=== PATIENT | female | born 1965 | race Asian ===

== ENCOUNTER 2018-01-10 03:50 | Inpatient (IN) | payer OTHER ==
[2018-01-10] MEDS: SOD CHLORIDE 0.9% 1,000 ML IV ×4 (04:23→16:13)
[2018-01-10] MEDS: ONDANSETRON 4 MG INJ IV (04:23)
[2018-01-10] MEDS: HYDROmorphONE 1 MG/ML SYG IV (04:24)
[2018-01-10 04:26] LABS: ADD MAN DIFF? NO
[2018-01-10 04:27] LABS: BASOPHILS % 0.2 % (0.0-2.0); EOSINOPHILS % 0.1 % (0.0-7.0); HEMATOCRIT 43.4 % (37.0-47.0); HEMOGLOBIN 14.5 g/dl (12.0-16.0); LYMPHOCYTES # 1.5 10^3/ul (0.8-2.9); LYMPHOCYTES % 8.2 % (15.0-51.0); MEAN CORPUSCULAR HEMOGLOBIN 31.4 pg (29.0-33.0); MEAN CORPUSCULAR HGB CONC 33.4 g/dl (32.0-37.0); MEAN CORPUSCULAR VOLUME 93.9 fl (82.0-101.0); MONOCYTES % 5.1 % (0.0-11.0); NEUTROPHILS % 85.9 % (39.0-77.0); PLATELET COUNT 268 10^3/UL (140-415); RED BLOOD COUNT 4.62 10^6/ul (4.20-5.40)
[2018-01-10 04:27] LABS: WHITE BLOOD COUNT 18.6 10^3/ul (4.8-10.8)
[2018-01-10 04:50] LABS: ALANINE AMINOTRANSFERASE 28 IU/L (13-69); ALBUMIN 4.7 g/dl (3.3-4.9); ALBUMIN/GLOBULIN RATIO 1.17; ALKALINE PHOSPHATASE 54 IU/L (42-121); ANION GAP 15 (8-16); ASPARTATE AMINO TRANSFERASE 33 IU/L (15-46); BILIRUBIN,INDIRECT 0.8 mg/dl (0-1.1); BILIRUBIN,TOTAL 0.8 mg/dl (0.2-1.3); BLOOD UREA NITROGEN 15 mg/dl (7-20); CALCIUM 9.7 mg/dl (8.4-10.2); CARBON DIOXIDE 29 mmol/L (21-31); CHLORIDE 102 mmol/L (97-110); CREATININE 0.71 mg/dl (0.44-1.00); GLUCOSE 147 mg/dl (70-220); LIPASE 87 U/L (23-300); POTASSIUM 4.5 mmol/L (3.5-5.1); SODIUM 141 mmol/L (135-144); TOTAL PROTEIN 8.7 g/dl (6.1-8.1)
[2018-01-10] MEDS: SOD CHLORIDE 0.9% 100 ML (05:16)
[2018-01-10] MEDS: IOHEXOL 300MG/ML 150 ML BTL (05:17)
[2018-01-10 05:58] LABS: URINE BLOOD (Dip) POC 1+ (NEGATIVE); URINE GLUCOSE (Dip) POC Negative (NEGATIVE); URINE KETONES (Dip) POC Negative (NEGATIVE); URINE LEUKOCYTE EST (Dip) POC Negative (NEGATIVE); URINE NITRITE (Dip) POC Negative (NEGATIVE); URINE TOTAL PROTEIN POC Negative (NEGATIVE)
[2018-01-10] MEDS: ACETAMINOPHEN 500 MG TAB PO (06:06)
[2018-01-10] MEDS: ERTAPENEM SODIUM 1 GM in SOD CHLORIDE 0.9% 100 ML IVPB (06:30)
[2018-01-10] MEDS ORDERED: ACETAMINOPHEN 325 MG TAB PO (09:00)
[2018-01-10] MEDS: morphine 2 MG INJ IV ×3 (12:25→21:19)
[2018-01-10] MEDS: LIDOCAINE 2% VISC 15 ML CUP PO (23:17)
[2018-01-10] MEDS: LORAZEPAM 2 MG INJ IV (23:20)
[2018-01-11] MEDS: morphine 2 MG INJ IV (01:16)
[2018-01-11] MEDS: SOD CHLORIDE 0.9% 1,000 ML IV ×3 (03:59→14:19)
[2018-01-12] MEDS: SOD CHLORIDE 0.9% 1,000 ML IV ×3 (00:52→23:10)
[2018-01-12 07:58] LABS: ADD MAN DIFF? NO
[2018-01-12 08:07] LABS: BASOPHIL # 0.1 10^3/ul (0.0-0.1); BASOPHILS % 0.5 % (0.0-2.0); EOSINOPHILS # 0.1 10^3/ul (0.0-0.5); EOSINOPHILS % 0.5 % (0.0-7.0); LYMPHOCYTES # 1.5 10^3/ul (0.8-2.9); LYMPHOCYTES % 11.8 % (15.0-51.0); MEAN CORPUSCULAR HGB CONC 32.4 g/dl (32.0-37.0); MEAN CORPUSCULAR VOLUME 95.6 fl (82.0-101.0); MEAN PLATELET VOLUME 10.3 fl (7.4-10.4); MONOCYTE # 0.8 10^3/ul (0.3-0.9); MONOCYTES % 6.2 % (0.0-11.0); NEUTROPHIL # 10.5 10^3/ul (1.6-7.5); PLATELET COUNT 218 10^3/UL (140-415); RED BLOOD COUNT 3.87 10^6/ul (4.20-5.40); RED CELL DISTRIBUTION WIDTH 13.2 % (11.5-14.5)
[2018-01-12 08:07] LABS: WHITE BLOOD COUNT 13.1 10^3/ul (4.8-10.8)
[2018-01-12 08:47] LABS: ANION GAP 13 (8-16); BLOOD UREA NITROGEN 11 mg/dl (7-20); CALCIUM 8.1 mg/dl (8.4-10.2); CARBON DIOXIDE 20 mmol/L (21-31); CHLORIDE 109 mmol/L (97-110); GLUCOSE 105 mg/dl (70-220); POTASSIUM 3.5 mmol/L (3.5-5.1); SODIUM 138 mmol/L (135-144)
[2018-01-12] MEDS ORDERED: hydrALAzine 20 MG INJ IV (21:00)
[2018-01-12] MEDS: PANTOPRAZOLE 40 MG INJ IV (23:05)
[2018-01-13] MEDS: SOD CHLORIDE 0.9% 1,000 ML IV ×2 (07:00→11:56)
[2018-01-13] MEDS: ONDANSETRON 4 MG INJ IV (20:32)
[2018-01-14] MEDS: SOD CHLORIDE 0.9% 1,000 ML IV ×3 (03:39→13:47)
[2018-01-15] MEDS: SOD CHLORIDE 0.9% 1,000 ML IV ×2 (08:47→15:53)
[2018-01-15] MEDS ORDERED: ALPRAZOLAM 1 MG TAB (15:39)
[2018-01-15] MEDS: CEFTRIAXONE 1 GM/50 ML (PMX) 50 ML IVPB (15:53)
[2018-01-15 16:04] LABS: ADD UMIC YES; UR ASCORBIC ACID NEGATIVE (NEGATIVE); UR BACTERIA FEW /HPF (NONE SEEN); UR BILIRUBIN (Dip) NEGATIVE (NEGATIVE); UR BLOOD (Dip) 2+ mg/dL (NEGATIVE); UR CLARITY CLEAR (CLEAR); UR COLOR COLORLESS (YELLOW); UR GLUCOSE (Dip) NEGATIVE (NEGATIVE); UR KETONES (Dip) 1+ mg/dL (NEGATIVE); UR LEUKOCYTE ESTERASE (Dip) NEGATIVE Leu/ul (NEGATIVE); UR NITRITE (Dip) NEGATIVE (NEGATIVE); UR RBC 1 /HPF (0-5); UR SPECIFIC GRAVITY (Dip) 1.003 (1.003-1.030); UR TOTAL PROTEIN (Dip) NEGATIVE (NEGATIVE); UR UROBILINOGEN (Dip) NEGATIVE (NEGATIVE); UR WBC 0 /HPF (0-5)
[2018-01-15 16:16] LABS: ALANINE AMINOTRANSFERASE 51 IU/L (13-69); ALBUMIN 3.8 g/dl (3.3-4.9); ALBUMIN/GLOBULIN RATIO 1.05; ALKALINE PHOSPHATASE 52 IU/L (42-121); ANION GAP 10 (8-16); ASPARTATE AMINO TRANSFERASE 40 IU/L (15-46); BILIRUBIN,INDIRECT 0.3 mg/dl (0-1.1); BILIRUBIN,TOTAL 0.3 mg/dl (0.2-1.3); BLOOD UREA NITROGEN 7 mg/dl (7-20); CALCIUM 8.9 mg/dl (8.4-10.2); CARBON DIOXIDE 26 mmol/L (21-31); CHLORIDE 106 mmol/L (97-110); CREATININE 0.65 mg/dl (0.44-1.00); GLUCOSE 108 mg/dl (70-220); SODIUM 139 mmol/L (135-144); TOTAL PROTEIN 7.4 g/dl (6.1-8.1)
[2018-01-15] MEDS: POTASSIUM CHLORIDE 50 ML IVPB (16:38)
[2018-01-15] MEDS: POTASSIUM CHLORIDE (SR) 20 MEQ TAB PO (18:21)
[2018-01-16] MEDS: DIPHENHYDRAMINE 25 MG CAP PO (03:37)
[2018-01-16] MEDS: SOD CHLORIDE 0.9% 1,000 ML IV ×2 (05:02→14:53)
[2018-01-16 06:24] LABS: ADD MAN DIFF? NO
[2018-01-16 06:33] LABS: WHITE BLOOD COUNT 6.9 10^3/ul (4.8-10.8)
[2018-01-16 06:33] LABS: BASOPHIL # 0.1 10^3/ul (0.0-0.1); BASOPHILS % 0.9 % (0.0-2.0); EOSINOPHILS # 0.2 10^3/ul (0.0-0.5); EOSINOPHILS % 3.5 % (0.0-7.0); HEMATOCRIT 37.6 % (37.0-47.0); HEMOGLOBIN 12.5 g/dl (12.0-16.0); LYMPHOCYTES # 1.9 10^3/ul (0.8-2.9); LYMPHOCYTES % 27.5 % (15.0-51.0); MEAN CORPUSCULAR HEMOGLOBIN 30.3 pg (29.0-33.0); MEAN CORPUSCULAR HGB CONC 33.2 g/dl (32.0-37.0); MEAN CORPUSCULAR VOLUME 91.3 fl (82.0-101.0); MEAN PLATELET VOLUME 9.7 fl (7.4-10.4); MONOCYTE # 0.8 10^3/ul (0.3-0.9); MONOCYTES % 12.2 % (0.0-11.0); NEUTROPHIL # 3.7 10^3/ul (1.6-7.5); NEUTROPHILS % 54.3 % (39.0-77.0); PLATELET COUNT 305 10^3/UL (140-415); RED BLOOD COUNT 4.12 10^6/ul (4.20-5.40); RED CELL DISTRIBUTION WIDTH 13.1 % (11.5-14.5)
[2018-01-16 07:38] LABS: ANION GAP 13 (8-16); BLOOD UREA NITROGEN 6 mg/dl (7-20); CALCIUM 8.7 mg/dl (8.4-10.2); CARBON DIOXIDE 25 mmol/L (21-31); CHLORIDE 106 mmol/L (97-110); CREATININE 0.59 mg/dl (0.44-1.00); GLUCOSE 96 mg/dl (70-220); POTASSIUM 3.5 mmol/L (3.5-5.1); SODIUM 140 mmol/L (135-144)
[2018-01-16] MEDS: PROPRANOLOL 20 MG TAB PO (17:38)
[2018-01-16] MEDS: ATORVASTATIN 10 MG TAB PO (21:45)
[2018-01-17 06:22] LABS: ADD MAN DIFF? NO
[2018-01-17 06:36] LABS: WHITE BLOOD COUNT 6.6 10^3/ul (4.8-10.8)
[2018-01-17 06:36] LABS: BASOPHIL # 0.1 10^3/ul (0.0-0.1); BASOPHILS % 1.1 % (0.0-2.0); EOSINOPHILS # 0.3 10^3/ul (0.0-0.5); EOSINOPHILS % 4.1 % (0.0-7.0); HEMATOCRIT 40.2 % (37.0-47.0); HEMOGLOBIN 13.6 g/dl (12.0-16.0); LYMPHOCYTES # 1.7 10^3/ul (0.8-2.9); LYMPHOCYTES % 25.2 % (15.0-51.0); MEAN CORPUSCULAR HEMOGLOBIN 31.2 pg (29.0-33.0); MEAN CORPUSCULAR HGB CONC 33.8 g/dl (32.0-37.0); MEAN CORPUSCULAR VOLUME 92.2 fl (82.0-101.0); MEAN PLATELET VOLUME 9.9 fl (7.4-10.4); MONOCYTE # 0.8 10^3/ul (0.3-0.9); NEUTROPHIL # 3.7 10^3/ul (1.6-7.5); NEUTROPHILS % 55.8 % (39.0-77.0); PLATELET COUNT 355 10^3/UL (140-415); RED BLOOD COUNT 4.36 10^6/ul (4.20-5.40); RED CELL DISTRIBUTION WIDTH 13.1 % (11.5-14.5)
[2018-01-17 06:51] LABS: ANION GAP 13 (8-16); BLOOD UREA NITROGEN 9 mg/dl (7-20); CALCIUM 9.5 mg/dl (8.4-10.2); CARBON DIOXIDE 28 mmol/L (21-31); CHLORIDE 102 mmol/L (97-110); CREATININE 0.68 mg/dl (0.44-1.00); GLUCOSE 105 mg/dl (70-220); POTASSIUM 3.3 mmol/L (3.5-5.1); SODIUM 140 mmol/L (135-144)
[2018-01-17] MEDS: PROPRANOLOL 20 MG TAB PO ×2 (08:24→21:20)
[2018-01-17] MEDS: ENOXAPARIN 40 MG/0.4 ML SYG SC (08:27)
[2018-01-17] MEDS ORDERED: POTASSIUM CHLORIDE (SR) 20 MEQ TAB PO (12:24)
[2018-01-17] MEDS ORDERED: POTASSIUM CHLORIDE 100 ML IVPB (13:00)
[2018-01-17] MEDS: POTASSIUM CHLORIDE (SR) 20 MEQ TAB PO (14:07)
[2018-01-17] MEDS: ATORVASTATIN 10 MG TAB PO (21:19)
[2018-01-18 05:28] LABS: ADD MAN DIFF? NO
[2018-01-18 05:33] LABS: BASOPHIL # 0.1 10^3/ul (0.0-0.1); BASOPHILS % 1.2 % (0.0-2.0); EOSINOPHILS # 0.3 10^3/ul (0.0-0.5); EOSINOPHILS % 3.7 % (0.0-7.0); HEMATOCRIT 41.4 % (37.0-47.0); HEMOGLOBIN 13.6 g/dl (12.0-16.0); LYMPHOCYTES # 2.1 10^3/ul (0.8-2.9); LYMPHOCYTES % 29.5 % (15.0-51.0); MEAN CORPUSCULAR HEMOGLOBIN 30.3 pg (29.0-33.0); MEAN CORPUSCULAR HGB CONC 32.9 g/dl (32.0-37.0); MEAN CORPUSCULAR VOLUME 92.2 fl (82.0-101.0); MEAN PLATELET VOLUME 9.8 fl (7.4-10.4); MONOCYTE # 0.9 10^3/ul (0.3-0.9); MONOCYTES % 12.7 % (0.0-11.0); NEUTROPHIL # 3.5 10^3/ul (1.6-7.5); NEUTROPHILS % 50.9 % (39.0-77.0); PLATELET COUNT 384 10^3/UL (140-415); RED BLOOD COUNT 4.49 10^6/ul (4.20-5.40); RED CELL DISTRIBUTION WIDTH 13.3 % (11.5-14.5)
[2018-01-18 05:49] LABS: MAGNESIUM 2.1 mg/dl (1.7-2.5)
[2018-01-18 05:55] LABS: ANION GAP 13 (8-16); BLOOD UREA NITROGEN 16 mg/dl (7-20); CALCIUM 9.8 mg/dl (8.4-10.2); CARBON DIOXIDE 27 mmol/L (21-31); CHLORIDE 104 mmol/L (97-110); CREATININE 0.73 mg/dl (0.44-1.00); GLUCOSE 114 mg/dl (70-220); POTASSIUM 3.6 mmol/L (3.5-5.1); SODIUM 140 mmol/L (135-144)
[2018-01-18] MEDS: PROPRANOLOL 20 MG TAB PO ×2 (08:29→20:44)
[2018-01-18] MEDS: ENOXAPARIN 40 MG/0.4 ML SYG SC (08:30)
[2018-01-18] MEDS ORDERED: morphine LIQ (10 MG/5 ML) CUP PO (18:00)
[2018-01-18] MEDS: ATORVASTATIN 10 MG TAB PO (20:44)
[2018-01-18] MEDS: LORAZEPAM 2 MG INJ IV (21:34)
[2018-01-19 06:06] LABS: ADD MAN DIFF? NO
[2018-01-19 06:19] LABS: BASOPHIL # 0.1 10^3/ul (0.0-0.1); BASOPHILS % 1.1 % (0.0-2.0); EOSINOPHILS # 0.3 10^3/ul (0.0-0.5); EOSINOPHILS % 3.8 % (0.0-7.0); HEMATOCRIT 43.1 % (37.0-47.0); HEMOGLOBIN 14.1 g/dl (12.0-16.0); LYMPHOCYTES # 2.3 10^3/ul (0.8-2.9); LYMPHOCYTES % 32.1 % (15.0-51.0); MEAN CORPUSCULAR HEMOGLOBIN 30.5 pg (29.0-33.0); MEAN CORPUSCULAR HGB CONC 32.7 g/dl (32.0-37.0); MEAN CORPUSCULAR VOLUME 93.1 fl (82.0-101.0); MEAN PLATELET VOLUME 9.7 fl (7.4-10.4); MONOCYTE # 0.8 10^3/ul (0.3-0.9); MONOCYTES % 11.6 % (0.0-11.0); NEUTROPHIL # 3.6 10^3/ul (1.6-7.5); NEUTROPHILS % 49.9 % (39.0-77.0); PLATELET COUNT 391 10^3/UL (140-415); RED BLOOD COUNT 4.63 10^6/ul (4.20-5.40); RED CELL DISTRIBUTION WIDTH 13.2 % (11.5-14.5)
[2018-01-19 06:19] LABS: WHITE BLOOD COUNT 7.1 10^3/ul (4.8-10.8)
[2018-01-19 07:45] LABS: ANION GAP 15 (8-16); BLOOD UREA NITROGEN 14 mg/dl (7-20); CALCIUM 9.8 mg/dl (8.4-10.2); CARBON DIOXIDE 27 mmol/L (21-31); CHLORIDE 101 mmol/L (97-110); CREATININE 0.74 mg/dl (0.44-1.00); GLUCOSE 100 mg/dl (70-220); POTASSIUM 3.8 mmol/L (3.5-5.1); SODIUM 139 mmol/L (135-144)
[2018-01-19] MEDS: PROPRANOLOL 20 MG TAB PO (08:13)
== END 2018-01-19 16:47 | disposition home or self-care (01) | DRG 388 ==
LOC: MS2 01-13 11:24 → 6WM 01-14 11:36 → MS1 01-17 16:25 → 6WM 01-13 14:52 → E/R 03:50 → MS2 01-13 14:52 → 6WM 01-14 11:37 → MS4 06:52
DX: K56.600 Partial intestinal obstruction, unspecified as to cause (principal); K63.1 Perforation of intestine (nontraumatic); K80.20 Calculus of gallbladder without cholecystitis without obstruction; D13.5 Benign neoplasm of extrahepatic bile ducts
CPT/HCPCS: 36415; 71045; 74177; 74181; 80048; 80053; 81001; 81003; 82962; 83690; 83735; 84443; 84703; 85025; 87086; 96361; 96374; 96375; 99285-25

== ENCOUNTER 2018-04-09 08:27 | Day surgery (SDC) | payer OTHER ==
[2018-04-09] MEDS ORDERED: MIDAZOLAM 1 MG/ML 2 ML INJ (10:50)
[2018-04-09] MEDS: BUPIVACAINE 0.25% (MPF) 30 ML INJ (11:24)
[2018-04-09] MEDS ORDERED: ROCURONIUM 50 MG INJ (11:41)
[2018-04-09] MEDS ORDERED: NEOSTIGMINE 3 MG/3 ML SYRINGE (11:41)
[2018-04-09] MEDS ORDERED: LIDOCAINE 2% (SDV) 5 ML INJ (11:41)
[2018-04-09] MEDS ORDERED: CIPROFLOXACIN 400MG/D5W 200 ML (11:41)
[2018-04-09] MEDS ORDERED: PROPOFOL 20 ML (11:41)
[2018-04-09] MEDS ORDERED: GLYCOPYRROLATE 0.4 MG INJ (11:41)
[2018-04-09] MEDS ORDERED: ONDANSETRON 4 MG INJ (11:44)
[2018-04-09] MEDS ORDERED: FENTAnyl 50 MCG/ML VIAL IV (12:30)
[2018-04-09] MEDS ORDERED: HYDROmorphONE 1 MG/5 ML IV SYRINGE IV ×2 (12:30)
[2018-04-09] MEDS ORDERED: ONDANSETRON 4 MG INJ IV (12:30)
[2018-04-09] MEDS ORDERED: DIPHENHYDRAMINE 50 MG INJ IV (12:30)
[2018-04-09] MEDS ORDERED: MEPERIDINE 25 MG INJ IV (12:30)
[2018-04-09] MEDS: HYDROCODONE/APAP (5/325) TAB PO (12:33)
[2018-04-09] MEDS ORDERED: SOD CHLORIDE 0.9% 1,000 ML IV (16:00)
== END 2018-04-09 14:00 | disposition home or self-care (01) ==
LOC: SDS 08:27
DX: K80.10 Calculus of gallbladder with chronic cholecystitis without obstruction (principal); I10 Essential (primary) hypertension; K21.9 Gastro-esophageal reflux disease without esophagitis
CPT/HCPCS: 47562; 88304

== ENCOUNTER 2018-10-12 14:26 | Emergency (ER) | payer OTHER ==
[2018-10-12 16:05] LABS: ADD UMIC YES; UR ASCORBIC ACID NEGATIVE (NEGATIVE); UR BACTERIA FEW /HPF (NONE SEEN); UR BILIRUBIN (Dip) NEGATIVE (NEGATIVE); UR BLOOD (Dip) 2+ mg/dL (NEGATIVE); UR CLARITY SLIGHTLY CLOUDY (CLEAR); UR COLOR STRAW (YELLOW); UR GLUCOSE (Dip) NEGATIVE (NEGATIVE); UR KETONES (Dip) NEGATIVE (NEGATIVE); UR LEUKOCYTE ESTERASE (Dip) 2+ Leu/ul (NEGATIVE); UR NITRITE (Dip) NEGATIVE (NEGATIVE); UR RBC 2 /HPF (0-5); UR SPECIFIC GRAVITY (Dip) 1.009 (1.003-1.030); UR SQUAMOUS EPITHELIAL CELL MODERATE /HPF (FEW); UR TOTAL PROTEIN (Dip) NEGATIVE (NEGATIVE); UR UROBILINOGEN (Dip) NEGATIVE (NEGATIVE); UR WBC 9 /HPF (0-5)
== END 2018-10-12 17:04 | disposition home or self-care (01) ==
LOC: FTE 14:26
DX: N39.0 Urinary tract infection, site not specified (principal); I10 Essential (primary) hypertension
CPT/HCPCS: 81001; 87086; 99283